=== PATIENT | male | born 1955 | race American Indian/Alaskan Native ===

== ENCOUNTER 2024-05-06 09:38 | Outpatient (CLI) | payer OTHER | END 2024-05-06 09:58 | disposition home or self-care (01) | LOC: RAD 09:38 | DX: I70.0 Atherosclerosis of aorta (principal) ==

== ENCOUNTER 2024-05-12 11:13 | Outpatient (CLI) | payer OTHER | END 2024-05-12 11:20 | disposition home or self-care (01) | LOC: NUCLEAR 11:13 | DX: M80.072 Age-related osteoporosis with current pathological fracture, left ankle and foot (principal); M81.0 Age-related osteoporosis without current pathological fracture ==